=== PATIENT | male | born 1975 | race Caucasian/White ===

== ENCOUNTER 2017-07-06 22:29 | Emergency (ER) | payer MEDICAID ==
[~2017-07-06] VITALS: Ht 188 cm; Wt 86.2 kg
[~2017-07-06 22:29] MED LIST: AUGMENTIN 875-1 EACH PO; GABAPENTIN800 MG PO; MEDROL 4MG. DOSE4 MG PO; NEURONTIN800 MG PO; PROZAC20 MG PO; QUETIAPINE FUM100 M2 PO; SUBOXONE 8 MG-21 FIL SL
--- NOTE | 2017-07-06 23:10 | Emergency Room Report ---
History of Present Illness Time Seen by [id number] Presenting Problem in Triage Pt arrived:Walked Presenting Problem:states cant pee any more thinks implant needs to be removed.states voided x1-3 times in a week. states not had bm since... cant remember. states is in drug court. 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 N Clinical Suspician of Infection? N Mental Status: 1 - Regular (Normal Baseline) Sepsis Risk:Low Sepsis Risk Have you (or family members/close friends) recently traveled outside the [place]? N If Yes, where/when: Have you had exposure to infectious disease within the past month? N TB? Other? 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 No Angina: No [place]: No Hypertension? No Hyperlipidemia? No CHF? No DVT? No PE? No COPD? No Asthma? No Anemia? No GERD? No Gastric ulcers? No GI Bleed? No Hernia? No Thyroid Problems? No Hypothyroidism? No CVA? No Seizures? No Diabetes? No Renal Insuffiency? No End Stage Renal Disease? No UTI? No BPH? No GB Disease: No Nephritic Syndrome? No Asplenia? No Hepatitis? No Sickle Cell Disease? No Arthritis? No Migraines? No Cataracts? No Glaucoma? No MRSA? No HIV? No TB? No Anxiety? No Depression? No Cancer? No More? Yes Additional hx: HX BIPOLAR,SCHIZO Immunization Hx DT/Tetanus Unknown Pneumonia Refuses Surgical Hx Previous Surgery?Y PENIS IMPLANT LIVER BIOPSY Social History Smoking Hx Smoker: Current Some Day Smoker Tobacco: Yes Type Cigarettes Packs/day < 1 Pack Are you/the child exposed to second-hand smoke: Yes Alcohol Alcohol: No Drugs none Review of Systems All Other Systems Reviewed and Negative Constitutional denies fever Eyes denies drainage ENT denies: ear discharge, epistaxis, throat pain. Respiratory denies cough, denies shortness of breath, denies wheezing Cardiovascular denies chest pain, denies palpitations, denies syncope Gastrointestinal see HPI, denies abdominal pain, constipation, denies diarrhea, denies vomiting Genitourinary see HPI. denies: dysuria, frequency, hesitancy, hematuria, scrotal/testicular pain. Musculoskeletal denies back pain, denies joint pain, denies joint swelling, denies neck pain Skin denies rash Psychiatric/Neurological denies headache, denies seizure Physical Exam Vital Signs Vital Signs Date Time Temp Pulse Resp B/P Pulse O2 O2 Flow FiO2 Ox Delivery Rate 07/060 98.6 76 18 112/77 97 - WBC >12,000 or <4,000 or 10% bands? 2 or more SIRS Criteria Met? B/P:112/77 MAP:88 Creatinine >2.0? UA output<0.5ml/kg/hr for 2 hrs? Platelet count >100,000? Lactate >2.0mmol/1? INR >1.2 or PTT > than 60 sec? Evidence of Organ Dysfunction? Provider documented clinical suspician of infection? N Sepsis Criteria Count: 0 Sepsis Risk: Low Sepsis Risk General Appearance no apparent distress Eye Exam - bilateral eye PERRL, bilateral eye EOMI Ear, Nose, Throat normal ENT inspection Neck supple Respiratory Status No: respiratory distress. Lung Sounds bilateral: lungs clear. 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 No Results/Orders Orders Procedure Date/time Status URINALYSIS/COMPLETE 07/06 2249 Active THYROID STIMULATING HORMONE 07/06 2249 Active THYROXINE (T4) 07/06 2249 Active SALICYLATE 07/06 2249 Active DRUG ABUSE SCREEN (TRIAGE) 07/06 2249 Active COMPLETE METABOLIC PANEL 07/06 2249 Active CBC WITH AUTO DIFF 07/06 2249 Active ALCOHOL 07/06 2249 Active Acetaminophen 07/06 2249 Active Departure Departure Time of Disposition 2328 Disposition DC Home or Self Care(routine) Clinical Impression Primary Impression: Delusional disorder Condition STABLE Referrals NO REFERRAL (Family) Patient Instructions DI for Psychosis Additional Instructions see pcp for follow up Discharge Counseling Counseled pt/family regarding diagnosis, follow up needs Prescriptions Current Visit Scripts No Known Home Medications ED Critical Care Critical Care No Comments refused all care but i do not think is holdable against will at [id number]
[2017-07-06 23:42] VITALS: BP 112/77
== END 2017-07-06 23:30 | disposition home or self-care (01) ==
LOC: ER 22:29
DX: F22 Delusional disorders (principal); Z72.0 Tobacco use

== ENCOUNTER 2017-07-08 04:13 | Emergency (ER) | payer MEDICAID ==
[~2017-07-08] VITALS: Ht 188 cm; Wt 86.2 kg
[2017-07-08 04:35] LABS: HEMOGLOBIN 15.5 g/dL (14.1-18.0); LYMPH # 3.7 K/mm3 (0.7-4.5); LYMPH % 48.5 % (10-50)
--- NOTE | 2017-07-08 04:41 | Emergency Room Report ---
History of Present Illness Time Seen by 0415 Presenting Problem in Triage Pt arrived:Wheelchair Presenting Problem:havent used the bathroom (urinated or had a bm) in over a week. Denies any flatus either. states he cant eat or drink because he feels too full. 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 N Clinical Suspician of Infection? N Mental Status: 1 - Regular (Normal Baseline) Sepsis Risk:Low Sepsis Risk Have you (or family members/close friends) recently traveled outside the [place]? N If Yes, where/when: Have you had exposure to infectious disease within the past month? N TB? Other? Specify: Source patient, RN notes reviewed, old records Exam Limitations no limitations Comment this wm who has c/o of constipation and dec urination- he has had this in past and assoc with delusional thought- no fever or vomiting and he denied suicidial Cardiac Chest Pain Chest pain indicative of cardiac No Timing/Duration this evening Severity moderate ALLERGIES Coded Allergies: No Known Drug Allergies (NKDA) (07/08/17) Home Medications Reported Medications No Known Home Medications History Medical History General CAD? No Angina: No [place]: No Hypertension? No Hyperlipidemia? No CHF? No DVT? No PE? No COPD? No Asthma? No Anemia? No GERD? No Gastric ulcers? No GI Bleed? No Hernia? No Thyroid Problems? No Hypothyroidism? No CVA? No Seizures? No Diabetes? No Renal Insuffiency? No End Stage Renal Disease? No UTI? No BPH? No GB Disease: No Nephritic Syndrome? No Asplenia? No Hepatitis? No Sickle Cell Disease? No Arthritis? No Migraines? No Cataracts? No Glaucoma? No MRSA? No HIV? No TB? No Anxiety? No Depression? No Cancer? No More? Yes Additional hx: HX BIPOLAR,SCHIZO Immunization Hx DT/Tetanus Unknown Pneumonia Refuses Surgical Hx Previous Surgery?Y PENIS IMPLANT LIVER BIOPSY Social History Smoking Hx Smoker: Current Every Day Smoker Tobacco: Yes Type Cigarettes Packs/day < 1 Pack Alcohol Alcohol: No Drugs none Review of Systems All Other Systems Reviewed and Negative Constitutional denies fever Eyes denies drainage ENT denies: ear discharge, epistaxis, throat pain. Respiratory denies cough, denies shortness of breath, denies wheezing Cardiovascular denies chest pain, denies syncope Gastrointestinal see HPI, denies abdominal pain, constipation, denies diarrhea, denies vomiting Genitourinary see HPI. denies: dysuria, frequency, hesitancy, hematuria, scrotal/testicular pain. Musculoskeletal denies back pain, denies joint pain, denies joint swelling, denies neck pain Skin denies rash Psychiatric/Neurological see HPI, denies headache, denies seizure, other Physical Exam Vital Signs Vital Signs Date Time Temp Pulse Resp B/P Pulse O2 O2 Flow FiO2 Ox Delivery Rate 07/08 0449 84 18 171/95 98 07/08 0427 98.5 87 14 148/85 98 - WBC >12,000 or <4,000 or 10% bands? 2 or more SIRS Criteria Met? B/P:171/95 MAP:106 Creatinine >2.0? UA output<0.5ml/kg/hr for 2 hrs? Platelet count >100,000? Lactate >2.0mmol/1? INR >1.2 or PTT > than 60 sec? Evidence of Organ Dysfunction? Provider documented clinical suspician of infection? N Sepsis Criteria Count: 0 Sepsis Risk: Low Sepsis Risk General Appearance no apparent distress Eye Exam - bilateral eye PERRL, bilateral eye EOMI Ear, Nose, Throat normal ENT inspection Neck supple Respiratory Status No: respiratory distress. 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 No Results/Orders Laboratory Tests 07/08/17 0420: Sodium 138, Potassium 3.7, Chloride 103, Carbon Dioxide 34 H, BUN 12, Creatinine 1.0, Estimated Creat Clear 120, Estimated GFR (MDRD) 83, Glucose 106, Calcium 9.2, Total Bilirubin 0.7, AST 16, ALT 34, Alkaline Phosphatase 61, Total Protein 8.1, Albumin 4.4, Globulin 3.7 H, Albumin/Globulin Ratio 1.2, TSH 4.50 H, Thyroxine (T4) 8.2, WBC 7.7, RBC 5.13, Hgb 15.5, Hct 45.9, MCV 89.5, RDW 12.3 , Plt Count 299, MPV 7.4, Gran % 43.3, Gran # 3.3, Lymphocytes % 48.5, Monocytes % 5.9, Eosinophils % 2.0, Basophils % 0.3, Lymphocytes # 3.7, Monocytes # 0.5, Eosinophils # 0.2, Basophils # 0.0, PUBS MCHC 33.8, MCH 30.2 Orders Procedure Date/time Status URINALYSIS/COMPLETE 07/08 421 Active THYROID STIMULATING HORMONE 07/08 421 Complete THYROXINE (T4) 07/08 421 Complete DRUG ABUSE SCREEN (TRIAGE) 07/08 421 Active COMPLETE METABOLIC PANEL 07/08 421 Complete CBC WITH AUTO DIFF 07/08 421 Complete Departure Departure Time of Disposition 0518 Disposition DC Home or Self Care(routine) Clinical Impression Primary Impression: Obsessional thoughts Secondary Impressions: Elevated TSH Condition STABLE Patient Instructions DI for Constipation Additional Instructions fluids and see pcp about following thyroid tests Discharge Counseling Counseled pt/family regarding diagnosis, test results, follow up needs Prescriptions Current Visit Scripts No Known Home Medications ED Critical Care Critical Care No at 0521
[2017-07-08 04:49] VITALS: BP 171/95
[2017-07-08] MEDS ORDERED: MIRALAX17 GM PO (05:22)
[2017-07-08 11:16] LABS: URINE BILIRUBIN - DIPSTICK NEGATIVE (NEG); URINE BLOOD NEGATIVE (NEG)
[2017-07-08 11:25] LABS: AMPHETAMINES/METAMPHETAMINES NEGATIVE ng/mL (<1000)
== END 2017-07-08 05:30 | disposition home or self-care (01) ==
LOC: ER 04:13
PROVIDERS: Emergency Medicine
DX: F20.0 Paranoid schizophrenia (principal); R94.6 Abnormal results of thyroid function studies; Z72.0 Tobacco use; R33.9 Retention of urine, unspecified

== ENCOUNTER 2017-07-08 08:58 | Emergency (ER) | payer MEDICAID ==
[~2017-07-08] VITALS: Ht 188 cm; Wt 86.2 kg
[~2017-07-08 08:58] MED LIST changes: +MIRALAX17 GM PO
--- NOTE | 2017-07-08 10:45 | Emergency Room Report ---
History of Present Illness Time Seen by 0923 Presenting Problem in Triage Pt arrived:Walked Presenting Problem:PT HAS BEEN SEEN REPETIVELY FOR PSYCHOTIC OBSESSIVE THOUGHT ISSUES. PT BELIEVES HE HAS SOMETHING IN HIS STOMACH DESPTE BEING TREATED SEVERAL TIMES AND EXAMINED BY NUMEROUS PHYSICIANS OVER THE COURSE OF THE LAST TWO MONTHS. THIS NURSE HAD THIS PATIENT APPROX TWO WEEKS AGO AND HIS STATE HE GETS LIKE THIS WHEN HE DOESN'T TAKE MEDS. 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 N Clinical Suspician of Infection? N Mental Status: 1 - Regular (Normal Baseline) Sepsis Risk:Low Sepsis Risk Have you (or family members/close friends) recently traveled outside the [place]? N If Yes, where/when: Have you had exposure to infectious disease within the past month? TB? Other? Specify: I read the above triage and i agree. I spoke with Castillo is 41 years old white male who claims that he swallowed 2 batteries weeks ago in a suicide attempt and he has been unable to have a bowel movement since then. Also he has a penile implant and he has been unable to urinate or to have and erection for the past 2 weeks. At this point the patient denies being suicidal or homicidal . The patient was seen 4 hours ago in the ER for constipation he underwent negative labs. The nurse contacted his who did not come because she is asleep at home after work. The patient states that he has been using drugs he has been in skilled nursing and is supposed to implant. [id number] Shay grace the [facility] and faxed her the report to [phone] from early this [facility] for evalution. Source patient, RN notes reviewed, old records Exam Limitations no limitations ALLERGIES Coded Allergies: No Known Drug Allergies (NKDA) (07/08/17) Home Medications Active Scripts Polyethylene Glycol 3350 (Miralax) 17 GM PO DAILY #30 Prov: 07/08/17 History Medical History General CAD? No Angina: No [place]: No Hypertension? No Hyperlipidemia? No CHF? No DVT? No PE? No COPD? No Asthma? No Anemia? No GERD? No Gastric ulcers? No GI Bleed? No Hernia? No Thyroid Problems? No Hypothyroidism? No CVA? No Seizures? No Diabetes? No Renal Insuffiency? No End Stage Renal Disease? No UTI? No BPH? No GB Disease: No Nephritic Syndrome? No Asplenia? No Hepatitis? No Sickle Cell Disease? No Arthritis? No Migraines? No Cataracts? No Glaucoma? No MRSA? No HIV? No TB? No Anxiety? No Depression? No Cancer? No More? Yes Additional hx: HX BIPOLAR,SCHIZO Immunization Hx Ped.Immunizations UTD Yes DT/Tetanus Unknown Pneumonia Refuses Surgical Hx Previous Surgery?Y PENIS IMPLANT LIVER BIOPSY Social History Smoking Hx Smoker: Current Every Day Smoker Tobacco: Yes Type N/A Packs/day < 1 Pack Alcohol Alcohol: No Review of Systems All Other Systems Reviewed and Negative Constitutional no symptoms reported Eyes no symptoms reported ENT no symptoms reported. Respiratory no symptoms reported Cardiovascular no symptoms reported Gastrointestinal see HPI, constipation Genitourinary see HPI (no urination). Musculoskeletal no symptoms reported Skin no symptoms reported Physical Exam Vital Signs Vital Signs Date Time Temp Pulse Resp B/P Pulse O2 O2 Flow FiO2 Ox Delivery Rate 07/08 1413 97.8 75 18 124/88 97 07/08 1146 97.8 75 18 124/88 97 07/08 1108 75 18 133/84 97 07/08 0920 97.8 74 18 134/81 96 - WBC >12,000 or <4,000 or 10% bands? 2 or more SIRS Criteria Met? B/P:134/81 MAP:98 Creatinine >2.0? UA output<0.5ml/kg/hr for 2 hrs? Platelet count >100,000? Lactate >2.0mmol/1? INR >1.2 or PTT > than 60 sec? Evidence of Organ Dysfunction? Provider documented clinical suspician of infection? N Sepsis Criteria Count: 0 Sepsis Risk: Low Sepsis Risk General Appearance normal appearance, WD/WN Eye Exam - bilateral eye normal exam, bilateral eye PERRL, bilateral eye EOMI Ear, Nose, Throat hearing grossly normal, normal ENT inspection Neck normal inspection, non-tender, supple, full range of motion Respiratory Status Yes: trachea midline, chest symmetrical, non tender chest. No: respiratory distress. Lung Sounds bilateral: normal breath sounds, lungs clear. Cardiovascular normal exam, regular rate/rhythm, no peripheral edema, no gallop, no JVD, no murmur, no rub, normal peripheral pulses Peripheral Pulses Pulses normal Yes Gastrointestinal normal bowel sounds, normal exam, non tender, soft, no organomegaly Back normal inspection, no CVA tenderness, no vertebral tenderness Extremities non-tender, normal range of motion, normal inspection Rectal normal exam, normal rectal tone, none. Rectal exam small prostate no masses heart stool no impaction. Male Genitalia normal genitalia, normal prostate, no hernia, circumcised, normal penile and testicular exam no devices foreign body detected by bimanual examination. 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 No Results/Orders Laboratory Tests 07/08/17 1110: Opiates Screen Cancelled, Urine Methadone Screen Cancelled, Barbiturates Cancelled, Phencyclidine Screen Cancelled, Amphetamines Screen Cancelled, Benzodiazepines Screen Cancelled, Cocaine Screen Cancelled, Marijuana (THC) Screen Cancelled 07/08/17 1104: Urine Color Cancelled, Urine Appearance Cancelled, Urine pH Cancelled, Ur Specific [place] Cancelled 07/08/17 1046: Opiates Screen Cancelled, Urine Methadone Screen Cancelled, Barbiturates Cancelled, Phencyclidine Screen Cancelled, Amphetamines Screen Cancelled, Benzodiazepines Screen Cancelled, Cocaine Screen Cancelled, Marijuana (THC) Screen Cancelled 07/08/17 1045: Sodium 139, Potassium 4.1, Chloride 104, Carbon Dioxide 34 H, BUN 9, Creatinine 0.9, Estimated Creat Clear 133, Estimated GFR (MDRD) 93, Glucose 92, Calcium 9.5 , Total Bilirubin 0.8, AST 19, ALT 35, Alkaline Phosphatase 56, Troponin I < 0.02, Total Protein 7.7, Albumin 4.2, Globulin 3.5 H, Albumin/Globulin Ratio 1.2, WBC 5.7, RBC 4.95, Hgb 15.2, Hct 44.3, MCV 89.5, RDW 12.3, Plt Count 308, MPV 8.0, Gran % 45.4, Gran # 2.6, Lymphocytes % 44.9, Monocytes % 7.6, Eosinophils % 1.7, Basophils % 0.5, Lymphocytes # 2.6, Monocytes # 0.4, Eosinophils # 0.1, Basophils # 0.0, PUBS MCHC 34.4, MCH 30.8, Salicylates 2.2 L , Acetaminophen 0 L, Alcohols 0 Current Medication Orders Sig/José Start time Last Medication Dose Route Stop Time Status Admin Diatrizoate Meglum/ 30 ML ONCE ONE 07/08 1115 DC 07/08 Diatrizoate Sod PO 07/08 1116 1106 Sodium Chloride 10 ML PRN PRN 07/08 1115 AC IV 07/09 1104 Diatrizoate Meglum/ 0 .STK-MED ONE 07/08 1104 DC Diatrizoate Sod .ROUTE Mineral Oil 133 ML ONCE ONE 07/08 1100 DC FL 07/08 1101 Orders Procedure Date/time Status DIET-NOTHING BY MOUTH 07/08 L Active IV SALINE LOCK 07/08 1104 Active URINARY CATHETER INSERT 07/[address] ABD/PELVIS REQ 07/08 1048 Complete TROPONIN I 07/08 1046 Complete SALICYLATE 07/08 1046 Complete CBC WITH AUTO DIFF 07/08 1046 Complete CHEM 12 PROFILE 07/08 1046 Complete ALCOHOL 07/08 1046 Complete Acetaminophen 07/08 1046 Complete CM/EKG CM/lamination spinner Rhythm Sinus Bradycardia, sinus bradycardia 50/m normal. QRS and T waves no acute findings XRAY/CT/US XRAY/CT/US XRAY abdomen XR interpretation by reviewed by me, discussed w/radiologist Xray Results normal/NAD, no radio opage fb. i ordered ct scan looking for battery complications. Departure Departure Time of Disposition 1335 Disposition DC/XFER from ER to [facility] Clinical Impression Primary Impression: Schizophrenia Secondary Impressions: Constipation, Non compliance w medication regimen Condition STABLE Referrals Ruben AMANDA,Darin Ocampo Additional Instructions I spoke with his Mira, she told me that he has been talking to himself lately he was admitted to [facility] twice this year. supposed to be on medications but he does not take his medications I spoke with Mira about coming to the ED but she said it'll make it worse and he will leave AGAINST MEDICAL ADVICE. She said the best thing to be committed to be admitted to [facility]. She is aware of the situation, circumstances risks and benefits The patient [facility]. Discharge Counseling Counseled pt/family regarding diagnosis, test results, medications/RX, home care, follow up needs ED Critical Care Critical Care No at [id number]
--- NOTE | 2017-07-08 10:45 | Emergency Room Report ---
History of Present Illness Time Seen by 0923 Presenting Problem in Triage Pt arrived:Walked Presenting Problem:PT HAS BEEN SEEN REPETIVELY FOR PSYCHOTIC OBSESSIVE THOUGHT ISSUES. PT BELIEVES HE HAS SOMETHING IN HIS STOMACH DESPTE BEING TREATED SEVERAL TIMES AND EXAMINED BY NUMEROUS PHYSICIANS OVER THE COURSE OF THE LAST TWO MONTHS. THIS NURSE HAD THIS PATIENT APPROX TWO WEEKS AGO AND HIS STATE HE GETS LIKE THIS WHEN HE DOESN'T TAKE MEDS. 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 N Clinical Suspician of Infection? N Mental Status: 1 - Regular (Normal Baseline) Sepsis Risk:Low Sepsis Risk Have you (or family members/close friends) recently traveled outside the [place]? N If Yes, where/when: Have you had exposure to infectious disease within the past month? TB? Other? Specify: I read the above triage and i agree. I spoke with Castillo is 41 years old white male who claims that he swallowed 2 batteries weeks ago in a suicide attempt and he has been unable to have a bowel movement since then. Also he has a penile implant and he has been unable to urinate or to have and erection for the past 2 weeks. At this point the patient denies being suicidal or homicidal . The patient was seen 4 hours ago in the ER for constipation he underwent negative labs. The nurse contacted his who did not come because she is asleep at home after work. The patient states that he has been using drugs he has been in [facility] and is supposed to implant. [address] Shay grace the [facility] and faxed her the report to [phone] from early this [facility] for evalution. Source patient, RN notes reviewed, old records Exam Limitations no limitations ALLERGIES Coded Allergies: No Known Drug Allergies (NKDA) (07/08/17) Home Medications Active Scripts Polyethylene Glycol 3350 (Miralax) 17 GM PO DAILY #30 Prov: 07/08/17 History Medical History General CAD? No Angina: No VT: No Hypertension? No Hyperlipidemia? No CHF? No DVT? No PE? No COPD? No Asthma? No Anemia? No GERD? No Gastric ulcers? No GI Bleed? No Hernia? No Thyroid Problems? No Hypothyroidism? No CVA? No Seizures? No Diabetes? No Renal Insuffiency? No End Stage Renal Disease? No UTI? No BPH? No GB Disease: No Nephritic Syndrome? No Asplenia? No Hepatitis? No Sickle Cell Disease? No Arthritis? No Migraines? No Cataracts? No Glaucoma? No MRSA? No HIV? No TB? No Anxiety? No Depression? No Cancer? No More? Yes Additional hx: HX BIPOLAR,SCHIZO Immunization Hx Ped.Immunizations UTD Yes DT/Tetanus Unknown Pneumonia Refuses Surgical Hx Previous Surgery?Y PENIS IMPLANT LIVER BIOPSY Social History Smoking Hx Smoker: Current Every Day Smoker Tobacco: Yes Type N/A Packs/day < 1 Pack Alcohol Alcohol: No Review of Systems All Other Systems Reviewed and Negative Constitutional no symptoms reported Eyes no symptoms reported ENT no symptoms reported. Respiratory no symptoms reported Cardiovascular no symptoms reported Gastrointestinal see HPI, constipation Genitourinary see HPI (no urination). Musculoskeletal no symptoms reported Skin no symptoms reported Physical Exam Vital Signs Vital Signs Date Time Temp Pulse Resp B/P Pulse O2 O2 Flow FiO2 Ox Delivery Rate 07/08 1413 97.8 75 18 124/88 97 07/08 1146 97.8 75 18 124/88 97 07/08 1108 75 18 133/84 97 07/08 0920 97.8 74 18 134/81 96 - WBC >12,000 or <4,000 or 10% bands? 2 or more SIRS Criteria Met? B/P:134/81 MAP:98 Creatinine >2.0? UA output<0.5ml/kg/hr for 2 hrs? Platelet count >100,000? Lactate >2.0mmol/1? INR >1.2 or PTT > than 60 sec? Evidence of Organ Dysfunction? Provider documented clinical suspician of infection? N Sepsis Criteria Count: 0 Sepsis Risk: Low Sepsis Risk General Appearance normal appearance, WD/WN Eye Exam - bilateral eye normal exam, bilateral eye PERRL, bilateral eye EOMI Ear, Nose, Throat hearing grossly normal, normal ENT inspection Neck normal inspection, non-tender, supple, full range of motion Respiratory Status Yes: trachea midline, chest symmetrical, non tender chest. No: respiratory distress. Lung Sounds bilateral: normal breath sounds, lungs clear. Cardiovascular normal exam, regular rate/rhythm, no peripheral edema, no gallop, no JVD, no murmur, no rub, normal peripheral pulses Peripheral Pulses Pulses normal Yes Gastrointestinal normal bowel sounds, normal exam, non tender, soft, no organomegaly Back normal inspection, no CVA tenderness, no vertebral tenderness Extremities non-tender, normal range of motion, normal inspection Rectal normal exam, normal rectal tone, none. Rectal exam small prostate no masses heart stool no impaction. Male Genitalia normal genitalia, normal prostate, no hernia, circumcised, normal penile and testicular exam no devices foreign body detected by bimanual examination. 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 No Results/Orders Laboratory Tests 07/08/17 1110: Opiates Screen Cancelled, Urine Methadone Screen Cancelled, Barbiturates Cancelled, Phencyclidine Screen Cancelled, Amphetamines Screen Cancelled, Benzodiazepines Screen Cancelled, Cocaine Screen Cancelled, Marijuana (THC) Screen Cancelled 07/08/17 1104: Urine Color Cancelled, Urine Appearance Cancelled, Urine pH Cancelled, Ur Specific [place] Cancelled 07/08/17 1046: Opiates Screen Cancelled, Urine Methadone Screen Cancelled, Barbiturates Cancelled, Phencyclidine Screen Cancelled, Amphetamines Screen Cancelled, Benzodiazepines Screen Cancelled, Cocaine Screen Cancelled, Marijuana (THC) Screen Cancelled 07/08/17 1045: Sodium 139, Potassium 4.1, Chloride 104, Carbon Dioxide 34 H, BUN 9, Creatinine 0.9, Estimated Creat Clear 133, Estimated GFR (MDRD) 93, Glucose 92, Calcium 9.5 , Total Bilirubin 0.8, AST 19, ALT 35, Alkaline Phosphatase 56, Troponin I < 0.02, Total Protein 7.7, Albumin 4.2, Globulin 3.5 H, Albumin/Globulin Ratio 1.2, WBC 5.7, RBC 4.95, Hgb 15.2, Hct 44.3, MCV 89.5, RDW 12.3, Plt Count 308, MPV 8.0, Gran % 45.4, Gran # 2.6, Lymphocytes % 44.9, Monocytes % 7.6, Eosinophils % 1.7, Basophils % 0.5, Lymphocytes # 2.6, Monocytes # 0.4, Eosinophils # 0.1, Basophils # 0.0, PUBS MCHC 34.4, MCH 30.8, Salicylates 2.2 L , Acetaminophen 0 L, Alcohols 0 Current Medication Orders Sig/José Start time Last Medication Dose Route Stop Time Status Admin Diatrizoate Meglum/ 30 ML ONCE ONE 07/08 1115 DC 07/08 Diatrizoate Sod PO 07/08 1116 1106 Sodium Chloride 10 ML PRN PRN 07/08 1115 AC IV 07/09 1104 Diatrizoate Meglum/ 0 .STK-MED ONE 07/08 1104 DC Diatrizoate Sod .ROUTE Mineral Oil 133 ML ONCE ONE 07/08 1100 DC VT 07/08 1101 Orders Procedure Date/time Status DIET-NOTHING BY MOUTH 07/08 L Active IV SALINE LOCK 07/08 1104 Active URINARY CATHETER INSERT 07/[address] ABD/PELVIS REQ 07/08 1048 Complete TROPONIN I 07/08 1046 Complete SALICYLATE 07/08 1046 Complete CBC WITH AUTO DIFF 07/08 1046 Complete CHEM 12 PROFILE 07/08 1046 Complete ALCOHOL 07/08 1046 Complete Acetaminophen 07/08 1046 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 QRS and T waves no acute findings XRAY/CT/US XRAY/CT/US XRAY abdomen XR interpretation by reviewed by me, discussed w/radiologist Xray Results normal/NAD, no radio opage fb. i ordered ct scan looking for battery complications. Departure Departure Time of Disposition 1335 Disposition DC/XFER from ER to [facility] Clinical Impression Primary Impression: Schizophrenia Secondary Impressions: Constipation, Non compliance w medication regimen Condition STABLE Referrals Ruben AMANDA,Darin Ocampo Additional Instructions I spoke with his Mira, she told me that he has been talking to himself lately he was admitted to [facility] twice this year. supposed to be on medications but he does not take his medications I spoke with Mira about coming to the ED but she said it'll make it worse and he will leave AGAINST MEDICAL ADVICE. She said the best thing to be committed to be admitted to [facility]. She is aware of the situation, circumstances risks and benefits The patient was transported to [facility] by the police. Discharge Counseling Counseled pt/family regarding diagnosis, test results, medications/RX, home care, follow up needs ED Critical Care Critical Care No at [phone]
[2017-07-08 11:15] LABS: BUN 9 mg/dL (7-18)
[2017-07-08 11:16] LABS: GFR (ESTIMATED) 93 ML/MIN (>60)
--- NOTE | 2017-07-08 11:29 | RADIOLOGY REPORT PS360 ---
ABDOMEN-FLAT UPRIGHT HISTORY: Abdominal pain, constipation COMPLAINS OF CONSTIPATION. ORDERING PHYSICIAN: Carolina Hall MD PATIENT AGE: 41 years COMPARISON: None FINDINGS: Nonspecific nonobstructive bowel gas pattern with mild amount retained colonic feces. No free air, abnormal calcifications, or acute bony anomalies. IMPRESSION: Mild constipation
[2017-07-08 11:49] LABS: HEMOGLOBIN 15.2 g/dL (14.1-18.0); LYMPH # 2.6 K/mm3 (0.7-4.5); LYMPH % 44.9 % (10-50)
--- NOTE | 2017-07-08 13:21 | RADIOLOGY REPORT PS360 ---
CT ABD PELVIS W/ CONTRAST CLINICAL INDICATION: Abdominal pain with constipation PT CLAIMS TO HAVE SWALLOWED A D-BATTERY 2 WEEKS AGO ORDERING PHYSICIAN: Carolina Hall MD PATIENT AGE: 41 years COMPARISON: None TECHNIQUE: Axial images obtained with sagittal and coronal reformats. PROCEDURE: Oral Contrast: Redicat IV Contrast: 75 mL's of Isovue-370. FINDINGS: Lower thorax: No acute finding ABDOMEN: Liver: No masses or biliary dilatation. Gallbladder: Nondistended. No radio opaque stones. Pancreas: No masses or peripancreatic fluid collections. Spleen: Unremarkable. Adrenals: Unremarkable Kidneys/ureters: No masses. No renal calculi. No hydronephrosis. No perinephric fluid collections. No ureteral dilatation or obvious ureteral calculi. Stomach bowel: There is a mild amount retained colonic feces Appendix: No evidence of appendicitis. PELVIS: Reproductive: Unremarkable Bladder: Atkinson catheter is present ABDOMEN & PELVIS: Peritoneum: No abnormal fluid collections. No obvious inflammatory changes. No free air. Lymph nodes: No enlarged lymph nodes apparent. Vasculature: No evidence of abdominal aortic aneurysm. No retroperitoneal hemorrhage evident. Bones: Mild degenerative changes are present in the lumbar spine with multiple small nodes. IMPRESSION: 1. No acute intra-abdominal or pelvic findings. 2. Mild constipation
[2017-07-08 15:34] VITALS: BP 124/88
== END 2017-07-08 15:34 | disposition short-term general hospital (02) ==
LOC: ER 08:58
PROVIDERS: Emergency Medicine
DX: F20.9 Schizophrenia, unspecified (principal); K59.00 Constipation, unspecified; F17.210 Nicotine dependence, cigarettes, uncomplicated
CPT/HCPCS: Q9967

== ENCOUNTER 2017-07-23 21:56 | Emergency (ER) | payer MEDICAID ==
[~2017-07-23] VITALS: Ht 188 cm; Wt 90.7 kg
--- NOTE | 2017-07-23 22:11 | Emergency Room Report ---
History of Present Illness Time Seen by 2200 Presenting Problem in Triage Pt arrived:Walked Presenting Problem:SWALLOWED A D BATTERY, STATES HE HASNT VOIDED OR HAD BM, NOT SURE HOW LONG H/O PSYCH. 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 N Clinical Suspician of Infection? N Mental Status: 1 - Regular (Normal Baseline) Sepsis Risk:Possible Sepsis Risk Have you (or family members/close friends) recently traveled outside the [place]? N If Yes, where/when: Have you had exposure to infectious disease within the past month? N TB? Other? Specify: Source patient, RN notes reviewed, old records Exam Limitations no limitations Comment pt with no acute c/o has long standing pschy issues with tonights c/o typical for pt - no fever or vomiting and no abd pain Cardiac Chest Pain Chest pain indicative of cardiac No Timing/Duration this evening Severity moderate ALLERGIES Coded Allergies: No Known Allergies (07/09/17) Home Medications Active Scripts Polyethylene Glycol 3350 (Miralax) 17 GM PO DAILY #30 Prov: 07/08/17 History Medical History General CAD? No Angina: No VT: No Hypertension? No Hyperlipidemia? No CHF? No DVT? No PE? No COPD? No Asthma? No Anemia? No GERD? No Gastric ulcers? No GI Bleed? No Hernia? No Thyroid Problems? No Hypothyroidism? No CVA? No Seizures? No Diabetes? No Renal Insuffiency? No End Stage Renal Disease? No UTI? No BPH? No GB Disease: No Nephritic Syndrome? No Asplenia? No Hepatitis? No Sickle Cell Disease? No Arthritis? No Migraines? No Cataracts? No Glaucoma? No MRSA? No HIV? No TB? No Anxiety? No Depression? No Cancer? No More? Yes Additional hx: HX BIPOLAR,SCHIZO Immunization Hx DT/Tetanus Unknown Pneumonia Refuses Surgical Hx Previous Surgery?Y PENIS IMPLANT LIVER BIOPSY Social History Smoking Hx Smoker: Former Smoker Tobacco: No Type Cigarettes Packs/day < 1 Pack Alcohol Alcohol: No Drugs none Review of Systems All Other Systems Reviewed and Negative Constitutional denies fever Eyes denies drainage ENT denies: ear discharge, epistaxis, throat pain. Respiratory denies cough, denies shortness of breath Cardiovascular denies chest pain, denies palpitations, denies syncope Gastrointestinal see HPI, constipation, denies diarrhea, denies vomiting Genitourinary denies: dysuria, frequency, hesitancy, hematuria. Musculoskeletal denies back pain, denies joint pain, denies joint swelling, denies neck pain Skin denies rash Psychiatric/Neurological denies seizure Physical Exam Vital Signs Vital Signs Date Time Temp Pulse Resp B/P Pulse O2 O2 Flow FiO2 Ox Delivery Rate 07/23 2159 98.4 97 20 151/83 95 - WBC >12,000 or <4,000 or 10% bands? 2 or more SIRS Criteria Met? B/P:151/83 MAP:105 Creatinine >2.0? UA output<0.5ml/kg/hr for 2 hrs? Platelet count >100,000? Lactate >2.0mmol/1? INR >1.2 or PTT > than 60 sec? Evidence of Organ Dysfunction? Provider documented clinical suspician of infection? N Sepsis Criteria Count: 2 Sepsis Risk: Possible Sepsis Risk General Appearance no apparent distress Eye Exam - bilateral eye PERRL, bilateral eye EOMI Ear, Nose, Throat normal ENT inspection Neck non-tender Respiratory Status No: respiratory distress. Lung Sounds bilateral: lungs clear. 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 No Departure Departure Time of Disposition 2205 Disposition DC Home or Self Care(routine) Clinical Impression Primary Impression: Medical clearance for incarceration Condition STABLE Patient Instructions Atypical Depression Additional Instructions see pcp as follow up Discharge Counseling Counseled pt/family regarding diagnosis, follow up needs ED Critical Care Critical Care No at [id number]
[2017-07-23 22:21] VITALS: BP 151/83
== END 2017-07-23 22:21 | disposition home or self-care (01) ==
LOC: ER 21:56
DX: Z02.89 Encounter for other administrative examinations (principal); F32.9 Major depressive disorder, single episode, unspecified